=== PATIENT | female | born 1965 | race Caucasian/White ===

== ENCOUNTER → 2017-08-16 | Day surgery (SDC) | payer BC ==
[2017-07-31 14:30] VITALS: BMI 32.0
--- NOTE | 2017-07-31 14:58 | PAT Medication Instructions ---
Service Date Jul 31, 2017. Current Home Medication List Omeprazole (Prilosec), 20 MG PO QAM Medication Instructions For Your Scheduled Surgery - Take the following medications the morning of surgery with a sip of water: Omeprazole (Prilosec), 20 MG PO QAM OTHERWISE NOTHING TO EAT OR DRINK AFTER MIDNIGHT If you have any questions please call us at [phone] or [phone] or [phone]
[2017-07-31 15:23] LABS: HEMATOCRIT 38.6 % (37-47); HEMOGLOBIN 12.8 g/dL (12.0-16.0); MEAN CORPUSCULAR HEMOGLOBIN 30.8 pg (25-34); MEAN CORPUSCULAR HGB CONC 33.2 g/dl (32-36); MEAN PLATELET VOLUME 10.6 fL (7.4-10.4); PLATELET COUNT 276 K/uL (130-400); RED CELL DISTRIBUTION WIDTH CV 13.4 % (11.5-14.5); RED CELL DISTRIBUTION WIDTH SD 45.7 fL (36.4-46.3); WHITE BLOOD COUNT 6.64 K/uL (4.8-10.8)
[2017-07-31 15:50] LABS: BASO % 0.5 %; BASO ABS # 0.03 K/uL (0-0.2); EOS % 2.4 %; EOS ABS # 0.16 K/uL (0-0.5); IG# 0.01 K/uL (0.00-0.02); LYMPH % 38.1 %; LYMPH ABS # 2.53 K/uL (1.2-3.4); MONO % 5.6 %; MONO ABS # 0.37 K/uL (0.11-0.59); NEUT % 53.2 %; NEUT ABS # 3.54 K/uL (1.4-6.5)
[2017-07-31 16:44] LABS: CALCIUM 8.7 mg/dl (8.5-10.1); CREATININE 0.75 mg/dl (0.60-1.20); POTASSIUM 3.6 mmol/L (3.5-5.1)
[~2017-08-16] VITALS: Ht 157.5 cm; Wt 81.1 kg
[~2017-08-16] MED LIST: ACETAMINOPHEN 1000 MG/100 ML IV IV ONE; ATROPINE SULFATE 0.1 MG/ML 5ML SYR IV PRN; BUPIVACAINE 0.5 % 5 MG/1 ML MPF 30ML VIAL ONE; CEFAZOLIN 2000MG IV PUSH 10 ML IV SCH; DEXAMETHASONE SOD INJ 4 MG/ML VIAL ONE; EpHEDrine SULFATE INJ 50 MG/ML AMP IV PRN; FENTANYL CITRATE INJ 50 MCG/1 ML 2 ML VIAL IV PRN; FENTANYL CITRATE INJ 50 MCG/1 ML 2 ML VIAL ONE; HYDROmorphone INJ 1 MG/ML SYR IV PRN; IBUPROFEN 600 MG TAB PO PRN; KETOROLAC TROMETHAMINE 30 MG/ML VIAL IV. PRN; LACTATED RINGER'S 1000ML 1,000 ML IV SCH; LIDOCAINE HCL 2% 2 ML VIAL (20MG/ML) ONE; MIDAZOLAM HCL 1 MG/ML 2ML VIAL ONE; ONDANSETRON INJ 2 MG/ML 2 ML VIAL IV PRN; ONDANSETRON INJ 2 MG/ML 2 ML VIAL ONE; OXYC-57 PO; OXYCODONE/ACETAMINOPHEN 5-325 TAB PO PRN; PRLSR20 PO; PROPOFOL IV EMULSION 10 MG/ML 20 ML VIAL IV ONE; ROCURONIUM BROMIDE 10 MG/ML 5 ML VIAL IV ONE; SODIUM CHLORIDE 0.9% 1000ML 1,000 ML IV SCH
[2017-08-16 09:22] VITALS: BP 131/68; PULSE 64; TEMP 37.1; O2SAT 96; Ht 157.5 cm; Wt 81.1 kg
--- NOTE | 2017-08-16 09:22 | History & Physical Bridge Note ---
H&P Re-Evaluation Bridge Note: I have examined the patient, reviewed the History & Physical and in the interval since the performance of the History & Physical I have noted the following changes of clinical significance: No changes noted
[2017-08-16 09:38] LABS: BASO % 0.6 %; BASO ABS # 0.04 K/uL (0-0.2); EOS % 3.1 %; EOS ABS # 0.19 K/uL (0-0.5); HEMATOCRIT 39.2 % (37-47); HEMOGLOBIN 13.4 g/dL (12.0-16.0); IG# 0.01 K/uL (0.00-0.02); LYMPH % 32.1 %; LYMPH ABS # 1.99 K/uL (1.2-3.4); MEAN CELL VOLUME 92.5 fL (80-100); MEAN CORPUSCULAR HEMOGLOBIN 31.6 pg (25-34); MEAN PLATELET VOLUME 10.3 fL (7.4-10.4); MONO % 7.3 %; MONO ABS # 0.45 K/uL (0.11-0.59); NEUT % 56.7 %; NEUT ABS # 3.52 K/uL (1.4-6.5); PLATELET COUNT 294 K/uL (130-400); RED CELL DISTRIBUTION WIDTH CV 13.5 % (11.5-14.5); RED CELL DISTRIBUTION WIDTH SD 45.4 fL (36.4-46.3)
[2017-08-16 09:40] LABS: MEAN CORPUSCULAR HGB CONC 34.2 g/dl (32-36)
--- NOTE | 2017-08-16 11:24 | Discharge Instructions ---
Discharge Instructions Date of Service Aug 16, 2017. Visit Reason for Visit: Chronic Pelvic Pain Discharge Discharge Diagnosis / Problem: S/P laparoscopic BSO Discharge Goals Goal(s): Decrease discomfort Activity Recommendations Activity Limitations: per Instructions/Follow-up section Anesthesia . Post Anesthesia Instructions: If you have had General Anesthesia or IV Sedation: * Do not drive today. * Resume driving when surgeon permits. * Do not make important decisions or sign legal documents today. * Call surgeon for: 1. Temperature elevations greater than 101 degrees F. 2. Uncontrollable pain. 3. Excessive bleeding. 4. Persistent nausea and vomiting. 5. Medication intolerance (nausea, vomiting or rash). * For nausea and vomiting use only clear liquids such as: tea, soda, bouillon until nausea subsides, then gradually increase diet as tolerated. * If you have any concerns or questions, call your surgeon's office. If physician is unavailable and it is an emergency, call 911 or go to the nearest emergency room. . Instructions / Follow-Up Instructions / Follow-Up ACTIVITY RECOMMENDATIONS: * Rest the first 2-3 days. You should be back to your normal activity levels by day 3. * No heavy lifting for 2 weeks. * No intercourse, tampons or douching for 1-2 weeks. * You may shower the next day. * Do not drive anytime that you are taking narcotic pain medicines. RETURN TO SCHOOL/WORK: * May return to school or work after 2-3 days. DIET: Nausea may occur in the immediate post-operative period. If so, take clear liquids such as tea, bouillon, apple juice until all nausea has subsided, then resume usual diet. MEDICATIONS: Resume previous medications unless instructed otherwise by your surgeon. Ibuprofen 200mg 2-3 tablets every 4-6 hours as needed -- OR -- Aleve 2 tablets every 8-12 hours as needed for post-operative discomfort Medications are over the counter. Tylenol may be used if above medications are contraindicated or not preferred. Medication should be taken with food or milk. Do not take on an empty stomach. SPECIAL CARE INSTRUCTIONS: * Check temperature twice daily for one week. report any elevation over 101 degrees. * You may experience some vagina spotting and/or bleeding. This is normal for 1 -2 weeks and should not be heavier than a normal period. If it is unusual in amount, call your physician. * Post-operative discomfort may consist of a sore throat, a "bloated" feeling and pain in the shoulders. these are normal symptoms, which usually only last for 2-3 days. * Remove band-aids tomorrow and shower. There is no need to replace band-aids unless there is drainage or discomfort. FOLLOW UP VISIT: Call your doctor's office for a post-operative 2 week visit if not already scheduled. Diet Recommendations Recommended Home Diet: no limitations, resume previous diet Procedures Procedures Performed: Laparoscopic Bilateral Salpingo-Oophorectomy Pending Studies Studies pending at discharge: no Medical Emergencies . Who to Call and When: Medical Emergencies: If at any time you feel your situation is an emergency, please call 911 immediately. . Non-Emergent Contact Non-Emergency issues call your: Primary Care Provider, Mobile Marketing Specialist . . "Provider Documentation" section prepared by Oscar Nieto. . [place] Drug Monitoring Program Search Results: patient reviewed within database, no issues identified
--- NOTE | 2017-08-16 11:26 | [facility] Post Operative Brief Note ---
Immediate Operative Summary Operative Date Aug 16, 2017. Pre-Operative Diagnosis Chronic Pelvic pain, Bilateral hydrosalpinx Post-Operative Diagnosis Chronic Pelvic pain, Bilateral hydrosalpinx Procedure(s) Performed Laparoscopic Bilateral Salpingo-Oophorectomy Surgeon Dr. Oscar Nieto Web Coordinator Surgeon(s) Dr. Ra Ennis Estimated Blood Loss 5 ml Findings Upon laparoscopic exam uterus was at midline, freely mobile and grossly normal. Bilateral fallopian tubes were noted to be dilated from known hydrosalpinx. Bilateral salpingo-oophorectomy was performed laparoscopically. Bilateral tubes and ovaries were sent to pathology. No other intraabdominal or pelvic pathology noted. Patient tolerated the procedure well and was sent to recovery with stable vital signs. Fluids (cc crystalloids) 1000 Specimens Permanment Specimen A: Left Falliopian tube and Ovary B: Right Falliopian tube and ovary Drains None Anesthesia General Complication(s) None Disposition Recovery Room / PACU
--- NOTE | 2017-08-16 11:46 | OPERATIVE REPORT ---
DATE OF OPERATION: 08/16/2017 PREOPERATIVE DIAGNOSES: 1. Chronic pelvic pain. 2. Bilateral hydrosalpinx. POSTOPERATIVE DIAGNOSES: Same. OPERATIVE PROCEDURE: Laparoscopic bilateral salpingo-oophorectomy. SURGEON: Dr. Oscar Nieto. TRANSITIONS MANAGER RN: Dr. Ennis. ANESTHESIA: General. ESTIMATED BLOOD LOSS: 5 mL. IV FLUIDS: 1000 mL crystalloids. URINE OUTPUT: 50 mL clear yellow urine. SPECIMENS: Left fallopian tube and ovary and right fallopian tube and ovary. DRAINS: None. COMPLICATIONS: None. DISPOSITION: Recovery room. OPERATIVE FINDINGS: Upon laparoscopic exam, uterus was at midline, freely mobile and grossly normal. Bilateral fallopian tubes were noted to be dilated from known hydrosalpinx. Bilateral salpingo-oophorectomy was performed laparoscopically. Both tubes and ovaries were removed from the abdomen and sent to pathology. There was no other intra-abdominal or pelvic pathology grossly noted. The patient tolerated the procedure well and was sent to recovery with stable vital signs. OPERATIVE PROCEDURE IN DETAIL: The patient was taken to the operating room, where general anesthesia was administered. Once anesthesia was found to be adequate, the patient was placed in dorsal lithotomy position and was prepped and draped in a manner appropriate for the procedure. The bladder was drained of clear yellow urine. A weighted speculum was then placed into the vagina and the anterior lip of the cervix was grasped with single tooth tenaculum. A Hulka uterine manipulator was then placed within the uterus in an anteverted fashion. The single tooth tenaculum and weighted speculum were removed from the vagina. The patient was then ready for the laparoscopic portion of the procedure. Attention was directed towards the abdomen, where 0.5% Marcaine was injected below the umbilicus and an 11-mm skin incision was made subumbilically in a horizontal fashion. A Veress needle was then placed within the abdomen. Normal saline was injected with no fecal content aspirated. Pneumoperitoneum was then created. The Veress needle was then removed and an 11-mm trocar was placed within the abdomen under direct laparoscopic visualization. The patient was then placed in steep Trendelenburg position and the bowel was displaced superiorly away from the pelvis. A second 11-mm skin incision was made on the left side of the abdomen once 0.5% Marcaine was injected and a second 11-mm trocar was then placed within the abdomen under direct laparoscopic visualization. A third 5-mm skin incision was made on the right side of the abdomen once 0.5% Marcaine was injected and a 5-mm trocar was then placed within the abdomen under direct laparoscopic visualization. A thorough examination of the abdomen and pelvis was then performed. Attention was then directed towards the left adnexa, where the left infundibulopelvic ligament was cauterized and transected, continued inferiorly through the rest of the attachment point of the left ovary and tube. The uteroovarian ligament was then cauterized and transected, completely transecting the left ovary and tube. The left ovary and tube were then placed within an EndoCatch bag and removed from the abdomen. Excellent hemostasis was noted at the removal site of the left ovary and tube. Attention was directed towards the right adnexa, in which likewise the right infundibulopelvic ligament was cauterized and transected, continued inferiorly through the broad ligament and through the uteroovarian ligament as well, cauterized and transected. Once the entire right ovary and tube were transected, the right ovary and tube were placed within an EndoCatch bag and removed from the abdomen as well and sent to pathology. Excellent hemostasis was noted. The entire pelvis was then copiously irrigated with warm saline solution and all fluids were then aspirated. Excellent hemostasis was noted bilaterally. At this point, the procedure was found to be complete. All instruments were removed from the abdomen and as much CO2 gas was allowed to percolate through open cannulas. The cannulas were then removed. The fascia of the 11-mm incisions were closed with 0 Vicryl suture in a [id number] interrupted fashion. All 3 skin incisions were then closed with 4-0 Monocryl in a subcuticular fashion. Excellent hemostasis was noted. The Hulka uterine manipulator was then removed from the vagina. All sponge, instrument and needle counts were found to be correct x2. The patient tolerated the procedure well and was sent to recovery with stable vital signs. I attest to the content of the Intraoperative Record and any orders documented therein. Any exception s are noted below.
--- NOTE | 2017-08-16 12:05 | Anesthesiology Progress Note ---
Anesthesia Post Op Note Date & Time Aug 16, 2017 at 12:04 Vital Signs Pain Intensity: 3 Vital Signs Past 12 Hours Date Time Temp Pulse Resp B/P (MAP) Pulse Ox O2 Delivery O2 Flow Rate FiO2 08/16/17 11:55 88 15 134/77 96 Room Air 08/16/17 11:45 58 13 147/84 100 Oxymask 10 08/16/17 11:35 66 19 158/96 100 Oxymask 10 08/16/17 11:29 36.5 90 18 133/96 100 Oxymask 10 08/16/17 09:22 37.1 64 18 131/68 (89) 96 Room Air Notes Mental Status: alert / awake / arousable, participated in evaluation Pt Amnestic to Procedure: Yes Nausea / Vomiting: adequately controlled Pain: adequately controlled Airway Patency, RR, SpO2: stable & adequate BP & HR: stable & adequate Hydration State: stable & adequate Anesthetic Complications: no major complications apparent
[2017-08-16 12:15] VITALS: BP 118/68; PULSE 74; TEMP 36.6; O2SAT 93
[2017-08-16 12:45] VITALS: BP 108/65; PULSE 74; TEMP 36.6; O2SAT 93
[2017-08-16 13:15] VITALS: BP 110/65; PULSE 71; TEMP 36.6; O2SAT 94
== END | disposition home or self-care (01) ==
LOC: C.ACU 08:57
PROVIDERS: ATTEND Obstetrics & Gynecology
DX: R10.2 Pelvic and perineal pain (principal); G89.29 Other chronic pain; N70.11 Chronic salpingitis; F17.200 Nicotine dependence, unspecified, uncomplicated; E66.9 Obesity, unspecified; Z68.32 Body mass index [BMI] 32.0-32.9, adult